=== PATIENT | female | born 1970 | race Caucasian/White ===

== ENCOUNTER 2018-10-07 10:53 | Emergency (ER) | payer OTHER ==
[~2018-10-07] VITALS: Ht 154.9 cm; Wt 97.5 kg
[2018-10-07 11:35] VITALS: Ht 154.9 cm; Wt 97.5 kg
[2018-10-07 13:10] VITALS: BP 102/58
== END 2018-10-07 13:10 | disposition home or self-care (01) ==
LOC: ED 10:53
DX: I88.9 Nonspecific lymphadenitis, unspecified (principal); K08.89 Other specified disorders of teeth and supporting structures
CPT/HCPCS: J0696